=== PATIENT | male | born 1935 | race Caucasian/White ===

== ENCOUNTER 2017-03-06 05:59 | Emergency (ER) | payer OTHER ==
[~2017-03-06] VITALS: Ht 172.7 cm; Wt 71.3 kg
[~2017-03-06 05:59] MED LIST: AMLODIPINE BESYL5 MG PO; DOCUSATE SODIU100 MG PO; FLOMAX0.4 MG PO; LIPITOR40 MG PO; LO-DOSE ASPIRIN81 M2 PO; METOPROLOL SUCC50 MG PO; PERCOCET 5/31 TABLET PO; PRILOSEC OTC20 MG PO; PRINIVIL20 MG PO; ZOCOR80 MG PO
[2017-03-06 07:11] LABS: EOSINOPHIL (%) 0.9 % (0-5); EOSINOPHIL COUNT 0.1 K/uL (0-0.3); HEMATOCRIT 32.9 % (38.0-50.0); IMMATURE GRANULOCYTE (%) 0.4 % (0.0-0.7); INSTRUMENT ABS NEUTROPHIL CT 6.1 K/uL; LYMPHOCYTE COUNT 1.4 K/uL (1.0-2.8); MCH 30.1 PG (29.0-34.0); MCHC 33.1 G/DL (30.0-36.0); MCV 90.9 FL (86-99); MEAN PLAT.VOLUME 9.5 uM^3 (9.0-12.4); MONOCYTE (%) 9.9 % (3-12); MONOCYTE COUNT 0.8 K/uL (0-0.8); NEUTROPHIL (%) 71.5 % (45-76); NEUTROPHIL COUNT 6.1 K/uL (1.8-6.4); PLATELET COUNT 199 K/uL (156-360); RBC DIS.WIDTH-CV 12.5 % (11.8-14.6); RBC DIS.WIDTH-SD 41.5 % (39-53); RED BLOOD COUNT 3.62 M/uL (4.00-5.50); WHITE BLOOD COUNT 8.5 K/uL (4.1-10.2)
[2017-03-06 07:35] LABS: ANION GAP 5 MEQ/L (2-14); CHLORIDE 101 MEQ/L (99-109); SAMPLE HEMOLYSIS CHECK 0; SAMPLE ICTERIC CHECK 0; SAMPLE LIPEMIA CHECK 0; SODIUM 136 MEQ/L (136-147); TOTAL BILIRUBIN 0.5 MG/DL (0.0-1.0)
[2017-03-06 07:41] LABS: ALKALINE PHOSPHATASE 108 IU/L (3-129); GFR ESTIMATE (CALCULATED) 41 mL/min/; GLUCOSE 94 mg/dL (70-99); UREA NITROGEN (BUN) 30 mg/dL (9-23)
[2017-03-06 07:53] LABS: ADD MIUA? YES; BILIRUBIN NEGATIVE; BLOOD SMALL; COLOR STRAW ((YELLOW)); GLUCOSE (STRIP) NEGATIVE; KETONES NEGATIVE; LEUKOCYTES NEGATIVE; NITRITE NEGATIVE; PROTEIN (STRIP) NEGATIVE; UROBILINOGEN 0.2 MG/DL (0.2-1.0)
[2017-03-06 07:55] LABS: BACTERIA NONE SEEN /HPF; EPITHELIAL CELLS NONE SEEN /HPF; MUCUS NONE SEEN /LPF; RED BLOOD CELLS 0-5 /HPF (0-5); WHITE BLOOD CELLS 0-5 /HPF (0-5)
[2017-03-06 10:11] VITALS: BP 133/64
== END 2017-03-06 10:12 | disposition home or self-care (01) ==
LOC: EME 05:59
PROVIDERS: Emergency Medicine
DX: M79.1 Myalgia (principal); F33.1 Major depressive disorder, recurrent, moderate; M54.9 Dorsalgia, unspecified; M25.551 Pain in right hip; M25.552 Pain in left hip; R35.0 Frequency of micturition; R30.0 Dysuria; I10 Essential (primary) hypertension
CPT/HCPCS: 80053; 81003; 85025; 90839; 93005; 99281; 99285; J1885; J2270

== ENCOUNTER 2017-03-25 21:57 | Observation (INO) | payer OTHER ==
[~2017-03-25] VITALS: Ht 175.3 cm; Wt 69.0 kg
[2017-03-25 22:37] LABS: POINT-OF-CARE METER ID UU13113778
[2017-03-25] MEDS ORDERED: LEXAPRO10 MG PO (22:55)
[2017-03-25] MEDS ORDERED: LIPITOR40 MG PO (22:55)
[2017-03-25] MEDS ORDERED: NORVASC5 MG PO (22:55)
[2017-03-25] MEDS ORDERED: ZESTRIL20 MG PO (22:56)
[2017-03-25] MEDS ORDERED: ULTRAM50 MG PO (22:56)
[2017-03-25] MEDS ORDERED: PERCOCET 5/31 TABLET PO (22:56)
[2017-03-25] MEDS ORDERED: TOPROL XL50 MG PO (22:57)
[2017-03-25] MEDS ORDERED: FLOMAX0.4 MG PO (22:57)
[2017-03-25 22:58] LABS: HEMATOCRIT 33.2 % (38.0-50.0); MCH 30.7 PG (29.0-34.0); MCHC 33.4 G/DL (30.0-36.0); MEAN PLAT.VOLUME 9.7 uM^3 (9.0-12.4); PLATELET COUNT 211 K/uL (156-360); RBC DIS.WIDTH-CV 12.6 % (11.8-14.6); RBC DIS.WIDTH-SD 42.1 % (39-53); RED BLOOD COUNT 3.61 M/uL (4.00-5.50); WHITE BLOOD COUNT 10.3 K/uL (4.1-10.2)
[2017-03-25 23:10] LABS: CHLORIDE 101 mEq/L (99-109); POTASSIUM 5.2 mEq/L (3.7-5.4); SODIUM 135 mEq/L (136-147)
[2017-03-25 23:13] LABS: GLUCOSE 115 mg/dL (70-99)
[2017-03-25 23:14] LABS: ANION GAP 9 MEQ/L (2-14); TOTAL BILIRUBIN 0.3 mg/dL (0.0-1.0)
[2017-03-25 23:16] LABS: ALKALINE PHOSPHATASE 125 IU/L (3-129); GFR ESTIMATE (CALCULATED) 27 mL/min/
[2017-03-25 23:17] LABS: UREA NITROGEN (BUN) 54 mg/dL (9-23)
[2017-03-25 23:18] LABS: DIRECT BILIRUBIN 0.1 mg/dL (0.0-0.3)
[2017-03-25 23:22] LABS: ADD MIUA? YES; BILIRUBIN NEGATIVE; BLOOD MODERATE; COLOR YELLOW ((YELLOW)); GLUCOSE (STRIP) NEGATIVE; KETONES NEGATIVE; LEUKOCYTES NEGATIVE; NITRITE NEGATIVE; PROTEIN (STRIP) NEGATIVE; SPECIFIC GRAVITY 1.014 (1.000-1.030); UROBILINOGEN 0.2 MG/DL (0.2-1.0)
[2017-03-25 23:28] LABS: BACTERIA NONE SEEN /HPF; EPITHELIAL CELLS RARE /HPF; HYALINE CASTS 0-5 /LPF; MUCUS NONE SEEN /LPF; UCUL ADDED? NO; WHITE BLOOD CELLS 0-5 /HPF (0-5)
[2017-03-25 23:38] LABS: SERUM ETHYL ALCOHOL < 10 mg/dL
[2017-03-25 23:40] LABS: SALICYLATE < 5.0 MG/DL (15-30)
[2017-03-25 23:41] LABS: TROP-I INTERPRETATION NEGATIVE; TROPONIN-I < 0.01 ng/mL (0.0-0.30)
[2017-03-26 02:35] VITALS: BP 140/63
[2017-03-26 03:40] VITALS: BP 136/84
[2017-03-26 06:42] LABS: ANION GAP 9 MEQ/L (2-14); CHLORIDE 106 MEQ/L (99-109); GFR ESTIMATE (CALCULATED) 34 mL/min/; GLUCOSE 109 mg/dL (70-99); POTASSIUM 4.8 MEQ/L (3.7-5.4); SAMPLE HEMOLYSIS CHECK 0; SAMPLE ICTERIC CHECK 0; SAMPLE LIPEMIA CHECK 0; SODIUM 138 MEQ/L (136-147); UREA NITROGEN (BUN) 49 mg/dL (9-23)
[2017-03-26 07:15] VITALS: BP 126/60
[2017-03-26 11:44] VITALS: BP 116/55
[2017-03-26 13:04] LABS: EOSINOPHIL (%) 0.4 % (0-5); HEMATOCRIT 31.1 % (38.0-50.0); IMMATURE GRANULOCYTE (%) 0.6 % (0.0-0.7); INSTRUMENT ABS NEUTROPHIL CT 5.6 K/uL; LYMPHOCYTE COUNT 0.8 K/uL (1.0-2.8); MCHC 33.1 G/DL (30.0-36.0); MCV 93.7 FL (86-99); MEAN PLAT.VOLUME 10.2 uM^3 (9.0-12.4); MONOCYTE COUNT 0.6 K/uL (0-0.8); NEUTROPHIL (%) 78.3 % (45-76); NEUTROPHIL COUNT 5.6 K/uL (1.8-6.4); PLATELET COUNT 183 K/uL (156-360); RBC DIS.WIDTH-CV 12.7 % (11.8-14.6); RBC DIS.WIDTH-SD 43.6 % (39-53); RED BLOOD COUNT 3.32 M/uL (4.00-5.50); WHITE BLOOD COUNT 7.1 K/uL (4.1-10.2)
[2017-03-26 13:12] LABS: ANION GAP 9 MEQ/L (2-14); CHLORIDE 104 MEQ/L (99-109); GFR ESTIMATE (CALCULATED) 39 mL/min/; GLUCOSE 140 mg/dL (70-99); POTASSIUM 4.7 MEQ/L (3.7-5.4); SAMPLE HEMOLYSIS CHECK 0; SAMPLE ICTERIC CHECK 0; SAMPLE LIPEMIA CHECK 0; SODIUM 139 MEQ/L (136-147); UREA NITROGEN (BUN) 42 mg/dL (9-23)
[2017-03-26] MEDS ORDERED: MIRALAX17 GM PO (14:21)
[2017-03-26] MEDS ORDERED: COLACE100 MG PO (14:21)
== END 2017-03-26 14:59 | disposition home health service (06) ==
LOC: EME 21:57 → EDOF 03-26 00:48 → 5WEST 03-26 02:32
PROVIDERS: Emergency Medicine; Hospitalist; Nurse Practitioner Family
DX: E86.0 Dehydration (principal); I10 Essential (primary) hypertension; R29.6 Repeated falls; G89.29 Other chronic pain; M54.9 Dorsalgia, unspecified; M79.606 Pain in leg, unspecified; R41.82 Altered mental status, unspecified; I25.2 Old myocardial infarction; Z95.5 Presence of coronary angioplasty implant and graft; N17.9 Acute kidney failure, unspecified; K59.03 Drug induced constipation; T40.2X5A Adverse effect of other opioids, initial encounter
CPT/HCPCS: 70450; 71020; 80048; 80048 91; 80076; 81003; 82948; 84484; 85025; 85027; 93005; 99281; 99285; G0378; G0480; G8978 GP CJ; G8979 GP CI; G8987 GO CI; G8988 GO CH; J1650; J7030

== ENCOUNTER 2017-05-12 11:05 | Emergency (ER) | payer OTHER ==
[~2017-05-12] VITALS: Ht 175.3 cm; Wt 69.1 kg
[~2017-05-12 11:05] MED LIST changes: +COLACE100 MG PO; +LEXAPRO10 MG PO; +MIRALAX17 GM PO; +NORVASC5 MG PO; +TOPROL XL50 MG PO; +ULTRAM50 MG PO; +ZESTRIL20 MG PO
[2017-05-12 11:48] LABS: ADD MIUA? YES; BILIRUBIN NEGATIVE; BLOOD SMALL; COLOR STRAW ((YELLOW)); GLUCOSE (STRIP) NEGATIVE; KETONES NEGATIVE; LEUKOCYTES NEGATIVE; NITRITE NEGATIVE; PROTEIN (STRIP) NEGATIVE; SPECIFIC GRAVITY 1.008 (1.000-1.030); UROBILINOGEN 0.2 MG/DL (0.2-1.0)
[2017-05-12 11:50] LABS: BACTERIA NONE SEEN /HPF; EPITHELIAL CELLS NONE SEEN /HPF; MUCUS NONE SEEN /LPF; RED BLOOD CELLS 0-5 /HPF (0-5); UCUL ADDED? NO; WHITE BLOOD CELLS 0-5 /HPF (0-5)
[2017-05-12 13:09] LABS: EOSINOPHIL (%) 0.8 % (0-5); EOSINOPHIL COUNT 0.1 K/uL (0-0.3); HEMATOCRIT 25.1 % (38.0-50.0); IMMATURE GRANULOCYTE (%) 0.5 % (0.0-0.7); LYMPHOCYTE COUNT 0.8 K/uL (1.0-2.8); MCH 29.3 PG (29.0-34.0); MCHC 31.9 G/DL (30.0-36.0); MCV 91.9 FL (86-99); MEAN PLAT.VOLUME 9.5 uM^3 (9.0-12.4); MONOCYTE (%) 10.7 % (3-12); MONOCYTE COUNT 0.8 K/uL (0-0.8); NEUTROPHIL (%) 77.3 % (45-76); PLATELET COUNT 205 K/uL (156-360); RBC DIS.WIDTH-CV 13.2 % (11.8-14.6); RBC DIS.WIDTH-SD 44.2 % (39-53); RED BLOOD COUNT 2.73 M/uL (4.00-5.50); WHITE BLOOD COUNT 7.8 K/uL (4.1-10.2)
[2017-05-12 13:20] LABS: CHLORIDE 101 mEq/L (99-109); POTASSIUM 4.8 mEq/L (3.7-5.4); SODIUM 137 mEq/L (136-147)
[2017-05-12 13:22] LABS: GLUCOSE 101 mg/dL (70-99)
[2017-05-12 13:23] LABS: ANION GAP 10 MEQ/L (2-14)
[2017-05-12 13:26] LABS: GFR ESTIMATE (CALCULATED) 44 mL/min/
[2017-05-12 13:27] LABS: UREA NITROGEN (BUN) 35 mg/dL (9-23)
[2017-05-12] MEDS ORDERED: FEROSUL325 MG PO (15:29)
[2017-05-12 15:50] VITALS: BP 124/60
== END 2017-05-12 15:51 | disposition home or self-care (01) ==
LOC: EME 11:05
PROVIDERS: Emergency Medicine
DX: M54.5 Low back pain (principal); R07.81 Pleurodynia; R29.6 Repeated falls; Z91.81 History of falling; D64.9 Anemia, unspecified; I10 Essential (primary) hypertension; Z95.5 Presence of coronary angioplasty implant and graft; Z90.5 Acquired absence of kidney
CPT/HCPCS: 70450; 71010; 72100; 80048; 81003; 85025; 93005; G8978 GP CM; G8979 CJ; G8980 GP CM; G8987 GO CI; G8988 CI; J2270; J7030

== ENCOUNTER 2017-05-15 07:37 | Emergency (ER) | payer OTHER ==
[~2017-05-15] VITALS: Ht 175.3 cm; Wt 67.1 kg
[~2017-05-15 07:37] MED LIST changes: +FEROSUL325 MG PO
[2017-05-15 08:23] LABS: EOSINOPHIL (%) 1.4 % (0-5); EOSINOPHIL COUNT 0.1 K/uL (0-0.3); HEMATOCRIT 29.1 % (38.0-50.0); IMMATURE GRANULOCYTE (%) 0.5 % (0.0-0.7); IMMATURE GRANULOCYTE COUNT 0.1 K/uL; INSTRUMENT ABS NEUTROPHIL CT 7.3 K/uL; LYMPHOCYTE COUNT 1.1 K/uL (1.0-2.8); MCH 29.6 PG (29.0-34.0); MCHC 32.3 G/DL (30.0-36.0); MCV 91.5 FL (86-99); MEAN PLAT.VOLUME 9.2 uM^3 (9.0-12.4); NEUTROPHIL (%) 76.5 % (45-76); NEUTROPHIL COUNT 7.3 K/uL (1.8-6.4); PLATELET COUNT 269 K/uL (156-360); RBC DIS.WIDTH-CV 12.9 % (11.8-14.6); RBC DIS.WIDTH-SD 43.4 % (39-53); RED BLOOD COUNT 3.18 M/uL (4.00-5.50); WHITE BLOOD COUNT 9.5 K/uL (4.1-10.2)
[2017-05-15 08:33] LABS: TROP-I INTERPRETATION NEGATIVE; TROPONIN-I 0.02 ng/mL (0.0-0.30)
[2017-05-15 08:39] LABS: CHLORIDE 100 mEq/L (99-109); POTASSIUM 4.5 mEq/L (3.7-5.4); SODIUM 139 mEq/L (136-147)
[2017-05-15 08:41] LABS: GLUCOSE 106 mg/dL (70-99)
[2017-05-15 08:43] LABS: ANION GAP 10 MEQ/L (2-14); TOTAL BILIRUBIN 0.4 mg/dL (0.0-1.0)
[2017-05-15 08:45] LABS: ALKALINE PHOSPHATASE 139 IU/L (3-129); GFR ESTIMATE (CALCULATED) 39 mL/min/
[2017-05-15 08:46] LABS: UREA NITROGEN (BUN) 34 mg/dL (9-23)
[2017-05-15 08:48] LABS: CREATINE KINASE 122 IU/L (1-294)
[2017-05-15 12:27] VITALS: BP 139/63
== END 2017-05-15 12:29 | disposition home or self-care (01) ==
LOC: EME 07:37
PROVIDERS: Emergency Medicine
DX: E86.0 Dehydration (principal); S00.83XA Contusion of other part of head, initial encounter; W18.30XA Fall on same level, unspecified, initial encounter; R29.6 Repeated falls; I25.2 Old myocardial infarction; I10 Essential (primary) hypertension; Z98.61 Coronary angioplasty status
CPT/HCPCS: 70450; 70486; 80053; 82550; 84484; 85025; 93005; 99281; 99285; J7030

== ENCOUNTER 2017-06-01 16:27 | Inpatient (IN) | payer OTHER ==
[~2017-06-01] VITALS: Ht 172.7 cm; Wt 64.5 kg
[~2017-06-01 16:27] MED LIST changes: -CENTRUM SILVER1 EAC1 PO; -DECADRON4 MG PO; -ENDOCET 5-3251 EACH PO; -ESCITALOPRAM OX20 MG PO; -EXTRA STRENGTH500 M1 PO; -MIRALAX255 GM PO; -ONDANSETRON4 MG/5 ML PO; -PREVACID15 MG PO; -TUMS X-STR300 MG PO
[2017-06-01 18:04] LABS: HEMATOCRIT 24.6 % (38.0-50.0); MCH 28.2 PG (29.0-34.0); MCHC 32.1 G/DL (30.0-36.0); MCV 87.9 FL (86-99); MEAN PLAT.VOLUME 9.1 uM^3 (9.0-12.4); PLATELET COUNT 330 K/uL (156-360); RBC DIS.WIDTH-CV 13.2 % (11.8-14.6); RBC DIS.WIDTH-SD 42.6 % (39-53); WHITE BLOOD COUNT 12.1 K/uL (4.1-10.2)
[2017-06-01 18:22] LABS: CHLORIDE 94 mEq/L (99-109); POTASSIUM 4.3 mEq/L (3.7-5.4)
[2017-06-01 18:23] LABS: SODIUM 134 mEq/L (136-147)
[2017-06-01 18:24] LABS: GLUCOSE 107 mg/dL (70-99)
[2017-06-01 18:26] LABS: ANION GAP 11 MEQ/L (2-14)
[2017-06-01 18:28] LABS: GFR ESTIMATE (CALCULATED) 52 mL/min/
[2017-06-01 18:29] LABS: UREA NITROGEN (BUN) 25 mg/dL (9-23)
[2017-06-01 22:07] LABS: ADD MIUA? YES; BILIRUBIN NEGATIVE; BLOOD NEGATIVE; COLOR YELLOW ((YELLOW)); GLUCOSE (STRIP) NEGATIVE; KETONES NEGATIVE; LEUKOCYTES NEGATIVE; NITRITE NEGATIVE; PROTEIN (STRIP) 30; SPECIFIC GRAVITY 1.018 (1.000-1.030); UROBILINOGEN 0.2 MG/DL (0.2-1.0)
[2017-06-01 22:17] LABS: BACTERIA RARE /HPF; CALCIUM OXALATE CRYSTALS 1+ /HPF; EPITHELIAL CELLS NONE SEEN /HPF; HYALINE CASTS 15-20 /LPF; MUCUS TRACE /LPF; UCUL ADDED? YES
[2017-06-02 01:16] LABS: IMM.RETIC FRACTION 14.7 % (3-19); RETIC HGB EQUIVALENT 25.9 (28-36); RETICULOCYTE COUNT 1.6 % (0.5-1.8)
[2017-06-02 01:17] VITALS: BP 150/67
[2017-06-02 01:22] LABS: INTER. NORMALIZED RATIO 1.3; PROTHROMBIN TIME 14.6 SEC (10.2-12.9)
[2017-06-02 01:24] LABS: PTT 26.6 SEC (25-37)
[2017-06-02 02:26] LABS: IRON 17 MCG/DL (35-150)
[2017-06-02 06:02] LABS: HEMATOCRIT 26.5 % (38.0-50.0); MCH 28.2 PG (29.0-34.0); MCHC 32.1 G/DL (30.0-36.0); MEAN PLAT.VOLUME 9.1 uM^3 (9.0-12.4); PLATELET COUNT 331 K/uL (156-360); RBC DIS.WIDTH-CV 13.1 % (11.8-14.6); RBC DIS.WIDTH-SD 42.3 % (39-53); RED BLOOD COUNT 3.01 M/uL (4.00-5.50)
[2017-06-02 06:33] LABS: ALKALINE PHOSPHATASE 119 IU/L (3-129); ANION GAP 8 MEQ/L (2-14); CHLORIDE 97 MEQ/L (99-109); GFR ESTIMATE (CALCULATED) 56 mL/min/; GLUCOSE 137 mg/dL (70-99); POTASSIUM 5.1 MEQ/L (3.7-5.4); SAMPLE HEMOLYSIS CHECK 0; SAMPLE ICTERIC CHECK 0; SAMPLE LIPEMIA CHECK 0; SODIUM 136 MEQ/L (136-147); TOTAL BILIRUBIN 0.4 MG/DL (0.0-1.0); UREA NITROGEN (BUN) 28 mg/dL (9-23)
[2017-06-02 07:45] VITALS: BP 120/56
[2017-06-02 07:59] LABS: FERRITIN 886 NG/ML (22-322)
[2017-06-02 16:50] VITALS: BP 111/59
[2017-06-02 19:30] VITALS: BP 99/53
[2017-06-02 23:09] VITALS: BP 112/58
[2017-06-03 04:30] VITALS: BP 140/62
[2017-06-03 06:25] LABS: HEMATOCRIT 25.6 % (38.0-50.0); MCH 28.3 PG (29.0-34.0); MCV 88.3 FL (86-99); MEAN PLAT.VOLUME 9.3 uM^3 (9.0-12.4); PLATELET COUNT 380 K/uL (156-360); RBC DIS.WIDTH-CV 13.4 % (11.8-14.6); RBC DIS.WIDTH-SD 43.4 % (39-53)
[2017-06-03 06:55] LABS: ANION GAP 11 MEQ/L (2-14); CHLORIDE 98 MEQ/L (99-109); GFR ESTIMATE (CALCULATED) 56 mL/min/; GLUCOSE 127 mg/dL (70-99); POTASSIUM 5.1 MEQ/L (3.7-5.4); SAMPLE HEMOLYSIS CHECK 0; SAMPLE ICTERIC CHECK 0; SAMPLE LIPEMIA CHECK 0; SODIUM 136 MEQ/L (136-147); UREA NITROGEN (BUN) 32 mg/dL (9-23)
[2017-06-03 07:35] VITALS: BP 130/60
[2017-06-03 11:24] VITALS: BP 114/53
[2017-06-03 16:00] VITALS: BP 109/54
[2017-06-03] MEDS ORDERED: ESCITALOPRAM OX20 MG PO (16:49)
[2017-06-03] MEDS ORDERED: EXTRA STRENGTH500 M1 PO (16:50)
[2017-06-03] MEDS ORDERED: TUMS X-STR300 MG PO (16:51)
[2017-06-03] MEDS ORDERED: PREVACID15 MG PO (16:52)
[2017-06-03] MEDS ORDERED: MIRALAX255 GM PO (16:53)
[2017-06-03] MEDS ORDERED: CENTRUM SILVER1 EAC1 PO (16:54)
[2017-06-03] MEDS ORDERED: COLACE100 MG PO (16:54)
[2017-06-03 19:24] VITALS: BP 106/51
[2017-06-04 07:49] LABS: ANION GAP 11 MEQ/L (2-14); CHLORIDE 98 MEQ/L (99-109); GFR ESTIMATE (CALCULATED) 56 mL/min/; POTASSIUM 4.5 MEQ/L (3.7-5.4); SAMPLE HEMOLYSIS CHECK 0; SAMPLE ICTERIC CHECK 0; SAMPLE LIPEMIA CHECK 0; SODIUM 134 MEQ/L (136-147); UREA NITROGEN (BUN) 38 mg/dL (9-23)
[2017-06-04 07:52] LABS: GLUCOSE 81 mg/dL (70-99)
[2017-06-04 08:06] VITALS: BP 148/63
[2017-06-04 11:46] VITALS: BP 165/73
[2017-06-04 16:00] VITALS: BP 129/60
[2017-06-04 19:10] VITALS: BP 120/56
[2017-06-04 23:05] VITALS: BP 126/63
[2017-06-05 02:00] VITALS: BP 133/64
[2017-06-05 06:52] VITALS: BP 157/67
[2017-06-05 15:38] VITALS: BP 116/57
[2017-06-06 00:23] VITALS: BP 139/69
[2017-06-06 07:00] VITALS: BP 164/66
[2017-06-06] MEDS ORDERED: DECADRON4 MG PO (14:48)
[2017-06-06 15:29] VITALS: BP 140/65
[2017-06-06] MEDS ORDERED: ONDANSETRON4 MG/5 ML PO (16:36)
[2017-06-06] MEDS ORDERED: ENDOCET 5-3251 EACH PO (16:37)
== END 2017-06-06 17:58 | DRG 543 ==
LOC: EME 16:27 → EDOF 23:36 → 5EAST 23:36 → ENRESERV 23:39 → 5EAST 06-02 00:58
PROVIDERS: Emergency Medicine; Internal Medicine
DX: C79.51 Secondary malignant neoplasm of bone (principal); N17.9 Acute kidney failure, unspecified; R18.8 Other ascites; F03.90 Unspecified dementia, unspecified severity, without behavioral disturbance, psychotic disturbance, mood disturbance, and anxiety; N40.1 Benign prostatic hyperplasia with lower urinary tract symptoms; C44.91 Basal cell carcinoma of skin, unspecified; E83.52 Hypercalcemia; C64.2 Malignant neoplasm of left kidney, except renal pelvis; I25.2 Old myocardial infarction; E78.5 Hyperlipidemia, unspecified; E78.00 Pure hypercholesterolemia, unspecified; N18.3 Chronic kidney disease, stage 3 (moderate); E87.1 Hypo-osmolality and hyponatremia; D63.8 Anemia in other chronic diseases classified elsewhere; Z66 Do not resuscitate; M54.10 Radiculopathy, site unspecified; Z51.5 Encounter for palliative care; M48.06 Spinal stenosis, lumbar region; I12.9 Hypertensive chronic kidney disease with stage 1 through stage 4 chronic kidney disease, or unspecified chronic kidney disease; K59.00 Constipation, unspecified; R32 Unspecified urinary incontinence; R33.8 Other retention of urine; T38.0X5A Adverse effect of glucocorticoids and synthetic analogues, initial encounter; Z95.0 Presence of cardiac pacemaker; Z90.5 Acquired absence of kidney; Z85.828 Personal history of other malignant neoplasm of skin; Z85.528 Personal history of other malignant neoplasm of kidney; Z85.46 Personal history of malignant neoplasm of prostate
CPT/HCPCS: 72131; 72192; 77295; 77300; 77331; 77334; 77412; 77417; 78306; 80048; 80053; 81003; 82040; 82272; 82607; 82728; 83540; 84466; 85027; 85045; 85610; 85730; 87086; 99281; 99285; A9503; G0103; J1100; J1644; J2270; J2405; J2765; J7030; J8540

== ENCOUNTER → 2017-06-01 | Outpatient (CLI) | payer OTHER ==
[~2017-06-01] MED LIST changes: +CENTRUM SILVER1 EAC1 PO; +DECADRON4 MG PO; +ENDOCET 5-3251 EACH PO; +ESCITALOPRAM OX20 MG PO; +EXTRA STRENGTH500 M1 PO; +MIRALAX255 GM PO; +ONDANSETRON4 MG/5 ML PO; +PREVACID15 MG PO; +TUMS X-STR300 MG PO
== END | disposition home or self-care (01) ==
LOC: NUC 10:39 → RAD 10:39 → NUC 11:00
DX: C79.51 Secondary malignant neoplasm of bone (principal); K57.30 Diverticulosis of large intestine without perforation or abscess without bleeding; M48.06 Spinal stenosis, lumbar region; M48.8X6 Other specified spondylopathies, lumbar region; G54.8 Other nerve root and plexus disorders; D49.2 Neoplasm of unspecified behavior of bone, soft tissue, and skin; C64.9 Malignant neoplasm of unspecified kidney, except renal pelvis
CPT/HCPCS: 72131; 72192; 78306; A9503

== ENCOUNTER → 2017-06-19 | Outpatient (CLI) | payer OTHER ==
[~2017-06-19] MED LIST changes: +CENTRUM SILVER1 EAC1 PO; +DECADRON4 MG PO; +ENDOCET 5-3251 EACH PO; +ESCITALOPRAM OX20 MG PO; +EXTRA STRENGTH500 M1 PO; +MIRALAX255 GM PO; +ONDANSETRON4 MG/5 ML PO; +PREVACID15 MG PO; +TUMS X-STR300 MG PO
== END ==
LOC: RAD 08:22
DX: C79.51 Secondary malignant neoplasm of bone (principal); K21.9 Gastro-esophageal reflux disease without esophagitis; K20.9 Esophagitis, unspecified; R22.2 Localized swelling, mass and lump, trunk; I25.10 Atherosclerotic heart disease of native coronary artery without angina pectoris; K80.20 Calculus of gallbladder without cholecystitis without obstruction; J98.4 Other disorders of lung; Z90.5 Acquired absence of kidney; R63.4 Abnormal weight loss
CPT/HCPCS: 71250; 74176